=== PATIENT | female | born 1960 | race Caucasian/White ===

== ENCOUNTER 2018-06-02 13:42 | Emergency (ER) | payer BC ==
[~2018-06-02] VITALS: Ht 157.5 cm; Wt 72.6 kg
[2018-06-02 14:01] VITALS: BP 139/86
--- NOTE | 2018-06-02 16:30 | NUR ---
CALLED TO A BED NO ANSWER
== END 2018-06-02 16:30 | disposition left against medical advice (07) ==
LOC: MED 13:42
DX: R42 Dizziness and giddiness (principal); Z53.21 Procedure and treatment not carried out due to patient leaving prior to being seen by health care provider